=== PATIENT | male | born 1995 | race Caucasian/White ===

== ENCOUNTER 2021-05-18 14:40 | Outpatient (CLI) | payer OTHER, SELFPAY ==
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
== END 2021-05-18 14:41 | disposition home or self-care (01) ==
PROVIDERS: PCP Family Medicine; Visit Provider Nurse Practitioner Family
DX: R07.9 Chest pain, unspecified (principal); M25.512 Pain in left shoulder
CPT/HCPCS: 71046; 71110; 73010

== ENCOUNTER → 2021-06-01 05:28 | Outpatient (CLI) | payer OTHER, SELFPAY ==
[2021-06-01 21:09] LABS: SARS-CoV-2 RNA PCR Positive
== END ==
PROVIDERS: PCP Family Medicine; Visit Provider Physician Assistant Medical
DX: U07.1 COVID-19 (principal)
CPT/HCPCS: C9803; U0003; U0005